=== PATIENT | female | born 1995 | race Caucasian/White ===

== ENCOUNTER 2020-01-01 11:55 | Emergency (ER) | payer OTHER ==
[~2020-01-01] VITALS: Ht 149.9 cm; Wt 68.2 kg
[2020-01-01] MEDS ORDERED: PROPARACAINE HCL 0.5% 15 ML OPHTHALMIC SOLUTION OS ONE (14:15)
[2020-01-01] MEDS ORDERED: FLUORESCEIN SODIUM 1 MG STRIP OS ONE (14:15)
[2020-01-01] MEDS ORDERED: NEOMYCIN/POLYMYXIN B/HYDROCORT 7.5 ML OPHTHALMIC SUSPENSION OS ONE (15:15)
[2020-01-01 16:28] VITALS: BP 118/76
== END 2020-01-01 16:26 | disposition home or self-care (01) ==
LOC: EMS 12:03
DX: H10.9 Unspecified conjunctivitis (principal); R03.0 Elevated blood-pressure reading, without diagnosis of hypertension
CPT/HCPCS: Z7502; Z7610